=== PATIENT | male | born 1975 | race Caucasian/White ===

== ENCOUNTER 2022-09-16 08:56 | Outpatient (CLI) | payer OTHER ==
[2022-09-16 09:43] VITALS: BP 132/84
--- NOTE | 2022-09-16 09:43 | SLEEP CARE CONSULTATION ---
Information from patient questionnaire entered by Brandon Ferreira. I have reviewed and concur with the information entered by Brandon Ferreira. This document represents the service I personally performed and the decisions made by me, Ariana Mccurdy ARNP. History of Present Illness Service Date and Time: 09/16/2022 0856 Reason for Visit: New patient, Previously diagnosed sleep apnea, sleep apnea on CPAP therapy Chief Complaint: reports: Observed pauses in breathing, Other (UPDATE SUPPLIES) Date of Onset: 7+YRS Usual bedtime: 930PM Time it takes to fall asleep: 15-20MIN Snores at night: Yes Observed to quit breathing while asleep: Yes Sleeps alone due to snoring: No Number of times waking at night: 1-2MIN Reasons for waking at night: reports: Snoring, Bathroom, Other (WATER) Toss, Turn, or Twitch while sleeping: Yes Recalls having dreams: Yes Usually gets out of bed at: 520AM Feels refreshed in the morning: Yes Morning headache: No Sleepy or fatigued during the day: Yes Ever fallen asleep while driving: No Takes day naps: Yes Dreams during day naps: Yes Prior sleep studies: Yes ([facility] JUL 2013) Additional HPI information: ADEBAYO HERRERA was previously diagnosed at [facility] in 2013 to have unknown, AHI unknown, obstructive sleep apnea-hypopnea syndrome and comes in today to establish care for CPAP therapy. - Parasomnia Symptoms Ever been unable to move upon waking from sleep: No Walks in sleep: No Talks in sleep: Yes Ever acted out dreams in sleep: No Ever felt weak in the knees when startled or emotional: Yes Bothered by creepy, crawly, restless sensations in legs: Yes Problems with memory or concentration: No CPAP Compliance Data - Data Reviewed with Patient Average duration of nightly device use: 6 hours 34 minutes Compliance rate %: 100 (30/30 days used) Current pressure setting (cmH2O): 8-16 (90% avg 9 cmH2O) Average residual AHI: 1.6 Central apnea: 0.1 Obstructive apnea: 0.7 Hypopnea: 0.8 Average large leak: 0 Compliance data discussion: Patient has a Dreamstation 2 , his setup date was 10/06/2018. He is using a nasal pillows mask. He is getting his supplies from [facility]. He does have a back up mask if needed. Subjective Patient concerns: reports: condensation in mask/hose (occasion), dry mouth, nose, throat (occasional dry mouth). denies: aerophagia, mask discomfort, air blowing in eyes, mask leak noise, nasal congestion, epistaxis Observed to snore while using device: No Current pressure setting perceived as: comfortable On therapy, patient: reports: sleeping better, awakening more refreshed, being more awake and alert during the day, more rested overall. denies: drowsiness while driving Initial [place] Sleepiness Scale score: 10 (08/06/22) Past Medical History Past Medical History: reports: Hypertension, Anxiety, GERD, Other ([place]) Social History The patient's occupation is a CONTRACTOR. Patient is and lives in [place]. Have you smoked in the past 12 months: No Alcohol use: Yes Alcohol amount and frequency: 2-3 BEER WEEKS Caffeine use: Yes Caffeine amount and frequency: 2-3 CUPS DAILY Family History Family history of sleep disordered breathing: No Family Hx Sleep Apnea: Father: Snoring Allergies and Home Medications Known drug allergies: No Drug allergies reviewed: Yes Home medication list reviewed: Yes Allergy and home medication list: Allergies No Known Drug Allergies Allergy (Verified 09/15/22 08:45) Medications: Nexium Lisinopril simvastatin Effexor Meclizine Review of Systems Weight gain over past 5 years: 10, he is trying to lose weight now Cardiovascular: reports: high blood pressure Gastrointestinal: denies: heartburn Neurological: denies: headaches Psychiatric: denies: anxiety, depression Ear/Nose/Throat: reports: dry mouth/throat. denies: tonsillectomy Endocrine: denies: thyroid disease Physical Exam Vital signs obtained and entered by: BRANDON Bullard MA Blood Pressure: 132/84 (LEFT ARM) Cuff size: regular Heart Rate: 84 O2 Saturation: 97 Height: 5 ft 8 in Weight: 219 lb 6.4 oz Body Mass Index: 33.3 BMI Classification: Obese Neck circumference: 19.25 Heart: regular rate and rhythm Lungs: clear bilaterally Impression and Plan 1. Obstructive Sleep Apnea-Hypopnea Syndrome, unknown, with good treatment compliance and good apnea control. On CPAP therapy, the patient has better sleep quality and is more rested overall. We have requested a copy of his sleep study but have not yet obtained it. Patient thinks he was in the moderate range. Patient has significant improvement of his sleep apnea and is satisfied with current CPAP therapy. He states he gets occasional dry mouth but thinks is because he forgets to add water to get water tank. Patient's apnea severity and rationale for treatment to reduce apnea, improve sleep quality and reduce cardiovascular and cerebrovascular events was reviewed. I also reviewed the benefit of consistent device use of CPAP for hypertension, anxiety and gastric reflux. 2. Obesity, unspecified. Currently patients BMI is 33.3. Patient states he is trying to lose weight right now. Obesity increases the risk of apnea, CPAP pressure requirements and overall health risks especially cardiovascular and diabetes. Thus patient is advised to continue to try to lose weight. The patient's CPAP pressure range should accommodate some weight loss. Symptoms to report for additional pressure adjustment discussed. * Continue auto CPAP pressure at 8-16 cmH2O * We will try to obtain a copy of his sleep * Update supplies once I can review his sleep study * Notify me if snoring with mask or feeling that the pressure is too much or too little * Continue to try to lose weight * Call this office if any problems using CPAP * Return for follow up in 1 year, or sooner if concerns arise Counseling Topics: Spare mask, Weight loss health impact Visit Type: In Office Time Spent with Patient (minutes): 32 Provider Statement: I spent 100% of the Face to Face Visit with the patient with greater than 50% spent counseling the patient and coordination of care.
== END 2022-09-16 08:57 | disposition home or self-care (01) ==
LOC: SC 08:56
PROVIDERS: ATTEND Nurse Practitioner Family
DX: G47.33 Obstructive sleep apnea (adult) (pediatric) (principal); E66.9 Obesity, unspecified; Z68.33 Body mass index [BMI] 33.0-33.9, adult
CPT/HCPCS: 99203; 99212

== ENCOUNTER 2023-04-05 12:04 | Outpatient (CLI) | payer OTHER | END 2023-04-05 12:05 | disposition short-term general hospital (02) | LOC: EMS 12:04 | DX: S31.114A Laceration without foreign body of abdominal wall, left lower quadrant without penetration into peritoneal cavity, initial encounter (principal); X99.1XXA Assault by knife, initial encounter; Y92.009 Unspecified place in unspecified non-institutional (private) residence as the place of occurrence of the external cause | CPT/HCPCS: A0425; A0427 ==

== ENCOUNTER 2023-10-06 08:43 | Outpatient (CLI) | payer OTHER ==
--- NOTE | 2023-10-06 09:07 | Sleep Patient Instructions ---
Sleep Center Visit Summary - Patient Visit Information Reason for Visit: Annual follow-up - Patient Instructions Additional Instructions: You will continue with CPAP therapy with pressure set at 8-16 cmH2O. A supply prescription will be updated with your DME. We encourage you to continue to try to lose weight. Please follow up with the sleep care office in 1 year. - Clinic Information Contact: [facility] [address] [place] [address] [email or web address] T: [phone]
--- NOTE | 2023-10-06 09:11 | SLEEP CARE CONSULTATION ---
Information from patient questionnaire entered by Candida Ferreira. I have reviewed and concur with the information entered by Candida Ferreira. This document represents the service I personally performed and the decisions made by me, Ariana Mccurdy ARNP. History of Present Illness Service Date and Time: 10/06/2023 0843 Previous diagnosis: Mild, Obstructive Sleep Apnea-Hypopnea Syndrome AHI: 9.5 (2013) Reason for follow up: annual (LAST SEEN 09/2022) Equipment type: CPAP (DREAM STATION 2 NEED MACHINE) Equipment obtained from: [employer] (getting supplies) Mask style: Nasal pillows (medium cushion) Backup mask available: Yes (old mask) Last cushion change: 1 week Prior sleep studies: Yes ([facility] JUL 2013) HPI additional information: ADEBAYO HERRERA was diagnosed to have mild, AHI 9.5, obstructive sleep apnea- hypopnea syndrome and returned today for CPAP therapy annual follow-up. Sleep Study - Results Prior sleep studies: Yes ([facility] JUL 2013) CPAP Compliance Data - Data Reviewed with Patient Average duration of nightly device use: 5 hours 46 minutes Compliance rate %: 75.1 (10/06/2022-10/05/2023; 335/365 days used) Current pressure setting (cmH2O): 8-16 Average residual AHI: 2.1 Central apnea: 0.1 Obstructive apnea: 0.9 Hypopnea: 1.1 Average large leak: 1 secs Subjective Missed days of use due to: reports: illness, travel, other (camping) Patient concerns: reports: nasal congestion (only when congested), dry mouth, nose, throat (dry mouth). denies: aerophagia, mask discomfort, air blowing in eyes, mask leak noise, condensation in mask/hose, epistaxis Observed to snore while using device: No Current pressure setting perceived as: comfortable On therapy, patient: reports: sleeping better, awakening more refreshed, being more awake and alert during the day, more rested overall. denies: drowsiness while driving Initial [place] Sleepiness Scale score: 10 (08/06/22) Current [place] Sleepiness Scale score: 9 (10/06/23) Allergies and Home Medications Known drug allergies: No Drug allergies reviewed: Yes Home medication list reviewed: Yes (no changes) Allergy and home medication list: Allergies No Known Drug Allergies Allergy (Verified 09/15/22 08:45) Review of Systems Review of systems same as previous: Yes (NO CHANGE) Physical Exam Vital signs obtained and entered by: CANDIDA Bullard MA Blood Pressure: 170/110 (LEFT ARM) Cuff size: regular Heart Rate: 72 O2 Saturation: 99 Height: 5 ft 8 in Weight: 221 lb 9.6 oz Weight change since last visit: 2 lb gain Body Mass Index: 33.7 BMI Classification: Obese Impression and Plan 1. Obstructive Sleep Apnea-Hypopnea Syndrome, mild, with good treatment compliance and good apnea control. On CPAP therapy, the patient has better sleep quality and is more rested overall. He has a Dreamstation 2 that he received about 3 years ago, he says it is working well. He last updated his original [employer] machine in 2019. While he is technically eligible for a new device, he does not want to pursue this at this time. Patient has significant improvement of their sleep apnea and is satisfied with current CPAP therapy. Patient denies problems with oral dryness, nasal congestion, epistaxis, skin irritation or aerophagia. Patient's apnea severity and rationale for treatment to reduce apnea, improve sleep quality and reduce cardiovascular and cerebrovascular events was reviewed. I also reviewed the benefit of consistent device use of CPAP for hypertension, gastric reflux, anxiety and migraines. 2. Obesity, unspecified. Currently patients BMI is 33.7. Obesity increases the risk of apnea, CPAP pressure requirements and overall health risks especially cardiovascular and diabetes. Thus patient is advised to lose weight. * Continue auto CPAP pressure at 8-16 cmH2O * Update supply prescription * Notify me if snoring with mask or feeling that the pressure is too much or too little * Attempt to lose weight * Call this office if any problems using CPAP * Return for follow up in 12 months, or sooner if concerns arise Counseling Topics: Spare mask, Weight loss health impact Prescriptions: Device supplies Follow up with Sleep Care in: 1 year Visit Type: In Office Time Spent with Patient (minutes): 20 Provider Statement: I spent 100% of the Face to Face Visit with the patient with greater than 50% spent counseling the patient and coordination of care.
[2023-10-06 09:37] VITALS: BP 170/110; O2SAT 99
== END 2023-10-06 08:44 | disposition home or self-care (01) ==
LOC: SC 08:43
PROVIDERS: ATTEND Nurse Practitioner Family
DX: G47.33 Obstructive sleep apnea (adult) (pediatric) (principal); E66.9 Obesity, unspecified; Z68.33 Body mass index [BMI] 33.0-33.9, adult
CPT/HCPCS: 99212; 99213